=== PATIENT | male | born 1960 | race Caucasian/White ===

== ENCOUNTER 2018-10-25 00:04 | Emergency (ER) | payer BC ==
--- OUTSIDE RECORDS SUMMARY | 2018-10-25 00:30 | XMS REPORT | Continuity of Care Document ---
:1960 External Reference #:[id number] Author Name John Polo M.D. Address [address] [place] [address], [address] [place] [address] Care Team Providers Name Role Phone John Polo M.D. Care Team Information [employer] Professor Unavailable Payers Date Identification Numbers Payment Provider Subscriber Policy Number: [id number] [employer] Mathieu Ojeda PayID: [id number] [address] [place] [address] Policy Number: [id number] [facility] Mathieu Ojeda Group Number: [id number] [address] [address] PayID: [id number] [address] Advance Directives Description No Information Available Problems Date Description Provider Status Onset: 08/17/2012 Benign essential hypertension Kenyon Varela M.D. Active Onset: 06/11/2013 Allergic rhinitis Rodney Menendez M.D. Onset: 06/11/2013 Tobacco user Rodney Menendez M.D. Onset: 06/11/2013 Acute bronchitis Rodney Menendez M.D. Onset: 06/11/2013 Leukocytosis Rodney Menendez M.D. Onset: 06/24/2013 Umbilical hernia Rodney Menendez M.D. Onset: 08/22/2013 Pure hypercholesterolemia Rodney Menendez M.D. Onset: 03/31/2014 Peptic reflux disease Rodney Menendez M.D. Onset: 10/10/2014 Mixed hyperlipidemia Rodney Menendez M.D. Onset: 10/10/2014 Gastroesophageal reflux disease Rodney Menendez M.D. Onset: 10/10/2014 Increased frequency of urination Rodney Menendez M.D. Onset: 04/16/2015 Type 2 diabetes mellitus Rodney Menendez M.D. Onset: 08/19/2015 Essential hypertension Rodney Menendez M.D. Onset: 02/17/2016 Type II diabetes mellitus Rodney Menendez uncontrolled Ten Onset: 02/17/2016 Immunization Rodney Menendez M.D. Onset: 02/17/2016 Obesity Rodney Menendez M.D. Onset: 07/05/2018 Acute upper respiratory infection, TEREZA Rubio Active unspecified Family History Date Family Member(s) Observation Comments Father due to COPD () Father due to Heart Disease () Father 70 : (age 62 Years) Mother due to Heart Disease First Sister 52 Second Sister 50 Social History Type Date Description Comments Sex Unknown Hobbies ACTV8 Tobacco Use Start: Unknown current cigarette smoker ETOH Use consumes 4-5 beers per day Tobacco Use Start: Unknown End: Unknown Patient is a former smoker Smoking Status Reviewed: 09/03/18 Patient is a former smoker Allergies, Adverse Reactions, Alerts Date Description Reaction Status Severity Comments 09/04/2018 Amlodipine Besylate Active Increased urination 02/16/2012 NKDA Inactive Medications Medication Date Status Form Strength Qnty SIG Indications Ordering Provider Diltiazem HCL ER 09/13 Active Caps ER 240mg 90cap 1 by mouth John Coated 24HR s every day Austin Polo M.D. Metoprolol 09/04 Active Tablets ER 100mg 90tab 1 by mouth John Succinate ER 24HR s every day Austin Polo M.D. Shingrix 01/04 Active Suspension 50mcg qs one per Rec protocol Austin Polo M.D. Anoro Ellipta 11/23 Active Aerosol 62.5-25mc 3unit 1 puff once g/Inh s daily Austin Polo M.D. Metformin HCL 03/01 Active Tablets 1000mg 180ta take bs one/half Austin tablet dora Arias twice M.D. a day Benazepril HCL 11/08 Active Tablets 40mg 90tab 1 by mouth s every day Austin Polo M.D. Glimepiride 08/17 Active Tablets 4mg 90tab 2 by mouth s once a day Austin Polo M.D. Aspirin Active Tablets 81mg 1 po qd Xultophy Active Solution 100-3.6Un Pen-Inject it-mg/ML Omeprazole Active Capsules DR 20mg 90cap take 1 s capsule by JViry mouth once Childres, daily M.DViry Rosuvastatin Active Tablets 10mg 90tab 1 by mouth John Calcium s every day Austin Polo M.D. Diltiazem HCL ER 09/04 Hx Caps ER 120mg 90cap 1 by mouth John Coated Beads 24HR s every day Austin Polo, 09/13 M.D. Amoxicillin/Clav 07/05 Hx Tablets 875-125mg 20tab 1 tablet J06.9 Soila almonteanate s twice a day TEREZA Poole - for 10 days 09/04 for infection Metoprolol 05/29 Hx Tablets ER 200mg 90tab 1 by mouth John Succinate ER 24HR s every day Austin Polo, 09/04 M.D. Amoxicillin/Clav 11/21 Hx Tablets 875-125mg 20tab 1 by mouth J01.80 John anat s twice a day Austin Potassium - , 12/17 M.D. Prednisone 11/21 Hx Tablets 10mg qs 40mg by J01.80 mouth every J. - day x5 days , 12/17 M.D. Proair HFA 11/21 Hx Aerosol 108(90Bas 25.5g 2 puffs q4 J01.80 e) m hours as J. - mcg/Act needed sob Child, 07/05 or wheeze .D. Amlodipine 09/13 Hx Tablets 5mg 90tab 1 by mouth John Besylate s every day Austin Polo, 07/05 M.D. Metoprolol 09/04 Hx Tablets ER 100mg 240ta 1 and a John Succinate ER 24HR bs half by J. - mouth every , 05/29 day M.D. Venlafaxine HCL 08/31 Hx Caps ER 75mg 90cap 1 by mouth John ER 24HR s every day Austin Polo, 02/28 M.D. Amoxicillin/Clav 07/28 Hx Tablets 500-125mg 15tab 1 tab by Roro.90 Dayna arroyo s mouth three Castillo, Potassium - times a day M.D. 08/31 for 5 days /2017 Prednisone 07/28 Hx Tablets 10mg QS 4 by mouth . Dayna Zavala daily for 3 Castillo, - days, 3 by M.D. 08/31 mouth daily /2017 for 3 days, 2 by mouth daily for 3 days,1 by mouth daily for 3 days Ativan 07/17 Hx Tablets 1mg 2tabs take 1 tab 30 minutes JViry - prior to Tala, 07/28. December. repeat in 20 minutes if needed for anxiety Tresiba 03/01 Hx Solution 100Unit/M 15uni inject 36 John Albrighttouch Pen-Inject L ts units every J. - day Melani, 07/05.D. Metoprolol 03/01 Hx Tablets ER 100mg 90tab 1 by mouth John Succinate 24HR s every day Austin Polo, 09/04.D Lotrel 02/09 Hx Capsules 5-10mg 90cap 1 tab by s mouth daily Austin Polo, 03/01. Augmentin 11/24 Hx Tablets 875-125mg 20tab 1 by mouth Marina Boone s twice a day [place] - , ORDER CLERK 03/01 Metoprolol 11/08 Hx Tablets ER 50mg 90tab 1 by mouth John Succinate 24HR s every day Austin Polo, 03/01. Metformin HCL 08/26 Hx Tablets 500mg 180ta 1 by mouth bs twice a day Austin Polo, 03/01. Lotrel 08/17 Hx Capsules 5-20mg 90cap 1 by mouth s every day Austin Polo, 11/08.. Azithromycin 11/10 Hx Tablets 250mg 6tabs take two tablets by J. - mouth at [facility], 02/15 once on the . first day then take one daily thereafter Hydromet 11/03 Hx Syrup 5-1.5mg/5 120ml 1 teaspoon J06.9 ML by mouth Ash, - every 6 R.N., 02/15 hours as A.N.P. needed cough Hydromet 07/15 Hx Syrup 5-1.5mg/5 473ml 1 teaspoon J18.8 ML by mouth J. - every 4 Childres, 08/19 hours as M.D. needed cough Levaquin 07/15 Hx Tablets 750mg 5tabs 1 by mouth J18.8 every day x J. - 5 days Childres, 08/19 M.D. Lotrel 06/22 Hx Capsules 5-10mg 90cap 1 tab by s mouth daily J. - Childres, 08/17.D. Amoxicillin/Clav 10/22 Hx Tablets 875-125mg 20tab 1 by mouth 466.0 s twice a day Varghese Aleman - R.N., 11/01 A.N.P. Prednisone 10/22 Hx Tablets 10mg 11tab 3 tabs po 466.0 s qd x 1d, 2 Ash, - tabs po qd R.N., 10/29 x 2d, 1 tab A.N.P. /2014 po qd x4d Metformin HCL 10/10 Hx Tablets 500mg 180ta take one bs tablet by J. - mouth 2 Childres, 10/22 times a day .D. Amoxicillin/Clav 07/04 Hx Tablets 875-125mg 20tab 1 by mouth 466.0 s twice a day J. Potassium - Childres, 10/10 M.D. Prednisone 07/04 Hx Tablets 10mg qs 40mg by 466.0 mouth every J. - day x3days Childres, 10/10 then 20mg M.D. by mouth every day x3days then 10mg by mouth every day x3days then d/c Guaifenesin ac 07/04 Hx Syrup 100-10mg/ 473ml 10cc every 466.0 5ML four hours J. - as needed Childres, 10/10 for cough . Wellbutrin SR 07/04 Hx Tablets ER 150mg 180ta 150mg daily 305.1 12HR bs for 3 days Austin Polo, 10/10 increase to 150mg by mouth twice a day Avelox 08/22 Hx Tablets 400mg 10tab 1 po qd 477.9 s Austin Polo, 07/04 Loratadine 06/24 Hx Tablets 10mg 90tab 1 tab po 477.9 s qday Austin Polo, 10/10 Azelastine HCL 06/11 Hx Solution 137mcg/Sp 1unit 2 sprays 477.9 ray s each Austin - nostril bid Melani, 10/10 Levofloxacin 06/11 Hx Tablets 750mg 7tabs 1 by mouth 466.0 every day Austin Polo, 06/24 Azithromycin 11/13 Hx Tablets 250mg 6tabs 2 po today, 466.0 then 1 po Ash, - qd R.N.,A.N. 11/18 P. Hydromet 11/13 Hx Syrup 5-1.5mg/5 60ml 1 tsp by 466.0 ML mouth every Ash, - night as R.N.,A.N. 02/13 needed P. cough, mr x 1 in 4h prn Prednisone 11/13 Hx Tablets 10mg 11tab 3 tabs po 466.0 s qd x 1d, 2 [place], - tabs po qd R.N.,A.N. 11/20 x 2d, 1 tab P. /2012 po qd x4d Cefuroxime 08/17 Hx Tablets 250mg 20tab 1 po bid 288.60 Kenyon Axetil regina Franz M.D. 11/13 Cyclobenzaprine 05/01 Hx Tablets 10mg 20tab 1 po hs prn 723.1 Kenyon HCL regina Franz M.D. 10/10 Naproxen 05/01 Hx Tablets 500mg 60tab 1 po bid 723.1 Chris s prn Maria M Aleman R.N.,A.NViry 08/19. Lotrel Hx Capsules 2.5-10mg 30cap 1 po qd Unknown /0000 s - 06/22 Centrum Silver Hx Tablets 1 po qod Unknown /0000 - 03/01 Glimepiride Hx Tablets 2mg 1 by mouth Unknown /0000 every day - 08/17 Crestor 00 Hx Tablets 10mg 90tab 1 by mouth Marina S. /0000 s every day Alex - ORDER CLERK 03/01 Medications Administered in Office Medication Date Status Form Strength Qnty SIG Indications Ordering Provider Admin Of Administered Injection Injection/B Vaccine,One 018 P Schedule Vaccine Admin Of Administered Injection Injection/B Vaccine,One 017 P Schedule Vaccine Admin Of Administered Injection Injection/B Vaccine,One 016 P Schedule Vaccine PPD Tuberculin Administered Injection Injection/B 5mL, [facility] 016 P Schedule 31104-587-62 Admin Of Administered Injection John J. Vaccine,One 015 Childres, Vaccine M.D. Admin Of Administered Injection John J. Vaccine,One 015 Childres, Vaccine M.D. Admin Of Administered Injection John J. Vaccine,One 013 Childres, Vaccine M.D. Immunizations CPT Code Status Date Vaccine Lot # 54554 Given 08/31/2017 Flucelvax Quad, 0.5mL, [facility] [address]-43 [id number] Given 03/01/2017 Pneumococcal Vaccine, [facility] 6409-9423-21, 0.5 ML [id number] Given 03/01/2017 Tdap, adacel vaccine [facility] 67911-683-32 .50ML [id number] Q2037 Given 08/17/2016 Fluvirin 0.5 ML,[facility] 94096-101-99 [id number] Q2037 Given 08/19/2015 Fluvirin 0.5 ML,[facility] 09661-262-91 [id number] Q2037 Given 10/10/2014 Fluvirin 0.5 ML,[facility] 63415-511-75 [id number] Q2037 Given 10/10/2014 Fluvirin 0.5 ML,[facility] 36007-680-80 Q2037 Given 06/11/2013 Fluvirin 0.5 ML,[facility] 47331-195-93 Vital Signs Date Vital Result Comment 09/04/2018 8:28am Weight 253.00 lb Height 68.5 inches 5'8.50" BP Systolic 136 mmHg BP Diastolic 80 mmHg Heart Rate 80 /min Respiratory Rate 18 /min BMI (Body Mass Index) 37.9 kg/m2 07/05/2018 3:21pm Weight 243.00 lb Height 68.5 inches 5'8.50" BP Systolic 140 mmHg BP Diastolic 90 mmHg Body Temperature 99.0 F Heart Rate 100 /min Respiratory Rate 20 /min BMI (Body Mass Index) 36.4 kg/m2 02/28/2018 9:32am Weight 249.00 lb Height 68.5 inches 5'8.50" BP Systolic 122 mmHg BP Diastolic 76 mmHg Heart Rate 78 /min Respiratory Rate 18 /min BMI (Body Mass Index) 37.3 kg/m2 01/04/2018 9:35am Weight 247.00 lb Height 68.5 inches 5'8.50" BP Systolic 140 mmHg BP Diastolic 80 mmHg Heart Rate 80 /min Respiratory Rate 18 /min BMI (Body Mass Index) 37.0 kg/m2 12/18/2017 2:16pm Weight 248.00 lb Height 68.5 inches 5'8.50" BP Systolic 140 mmHg BP Diastolic 80 mmHg Body Temperature 97.9 F Heart Rate 78 /min Respiratory Rate 18 /min BMI (Body Mass Index) 37.2 kg/m2 11/21/2017 12:46pm Weight 248.00 lb Height 68.5 inches 5'8.50" BP Systolic 130 mmHg BP Diastolic 80 mmHg Body Temperature 98.6 F Heart Rate 84 /min BMI (Body Mass Index) 37.2 kg/m2 08/31/2017 8:49am Weight 254.00 lb Height 68.5 inches 5'8.50" BP Systolic 160 mmHg BP Diastolic 90 mmHg Heart Rate 80 /min BMI (Body Mass Index) 38.1 kg/m2 07/28/2017 1:13pm Weight 250.56 lb Height 70 inches 5'10" BP Systolic 138 mmHg BP Diastolic 72 mmHg Body Temperature 98.3 F Heart Rate 76 /min O2 % BldC Oximetry 97 % BMI (Body Mass Index) 35.9 kg/m2 03/01/2017 8:31am Weight 240.00 lb Height 70 inches 5'10" BP Systolic 148 mmHg BP Diastolic 90 mmHg Heart Rate 64 /min BMI (Body Mass Index) 34.4 kg/m2 11/24/2016 1:52pm Weight 241.00 lb Height 70 inches 5'10" BP Systolic 140 mmHg BP Diastolic 76 mmHg Body Temperature 97.9 F Heart Rate 78 /min Respiratory Rate 18 /min BMI (Body Mass Index) 34.6 kg/m2 08/17/2016 8:41am Weight 237.00 lb Height 70 inches 5'10" BP Systolic 150 mmHg BP Diastolic 94 mmHg Heart Rate 78 /min BMI (Body Mass Index) 34.0 kg/m2 02/17/2016 9:09am Weight 229.00 lb Height 67.5 inches 5'7.50" BP Systolic 130 mmHg BP Diastolic 76 mmHg Heart Rate 76 /min Respiratory Rate 18 /min BMI (Body Mass Index) 35.3 kg/m2 11/04/2015 3:02pm Weight 224.00 lb Height 67.5 inches 5'7.50" BP Systolic 130 mmHg BP Diastolic 100 mmHg BP Systolic Recheck 126 mmHg BP Diastolic Recheck 88 mmHg Body Temperature 99.0 F Heart Rate 78 /min Respiratory Rate 16 /min BMI (Body Mass Index) 34.6 kg/m2 08/19/2015 9:19am Weight 224.00 lb Height 67.5 inches 5'7.50" BP Systolic 158 mmHg BP Diastolic 94 mmHg Heart Rate 80 /min BMI (Body Mass Index) 34.6 kg/m2 07/15/2015 10:40am Weight 210.00 lb Height 67.5 inches 5'7.50" BP Systolic 138 mmHg BP Diastolic 90 mmHg Body Temperature 98.5 F Heart Rate 90 /min O2 % BldC Oximetry 97 % Respiratory Rate 20 /min BMI (Body Mass Index) 32.4 kg/m2 04/16/2015 1:40pm Weight 200.00 lb Height 67.5 inches 5'7.50" BP Systolic 130 mmHg BP Diastolic 78 mmHg Heart Rate 80 /min O2 % BldC Oximetry 97 % Respiratory Rate 16 /min BMI (Body Mass Index) 30.9 kg/m2 10/22/2014 12:57pm Weight 220.00 lb Height 67.5 inches 5'7.50" BP Systolic 130 mmHg BP Diastolic 84 mmHg Body Temperature 99.0 F right ear Heart Rate 110 /min O2 % BldC Oximetry 91 % BMI (Body Mass Index) 33.9 kg/m2 10/10/2014 8:35am Weight 220.00 lb Height 67.5 inches 5'7.50" BP Systolic 140 mmHg BP Diastolic 84 mmHg Heart Rate 80 /min BMI (Body Mass Index) 33.9 kg/m2 07/04/2014 10:30am Weight 221.00 lb Height 67.5 inches 5'7.50" BP Systolic 142 mmHg BP Diastolic 80 mmHg Body Temperature 98.4 F Heart Rate 66 /min BMI (Body Mass Index) 34.1 kg/m2 03/31/2014 8:35am Weight 215.00 lb BP Systolic 140 mmHg BP Diastolic 94 mmHg Body Temperature 98.5 F Heart Rate 60 /min 08/22/2013 3:09pm Weight 230.00 lb Height 67.5 inches 5'7.50" BP Systolic 140 mmHg BP Diastolic 92 mmHg Heart Rate 104 /min BMI (Body Mass Index) 35.5 kg/m2 06/24/2013 3:47pm BP Systolic 148 mmHg BP Diastolic 80 mmHg Body Temperature 98.4 F Heart Rate 88 /min 06/11/2013 9:16am Weight 226.00 lb Height 67.6 inches 5'7.60" BP Systolic 138 mmHg BP Diastolic 88 mmHg Body Temperature 98.5 F Heart Rate 84 /min O2 % BldC Oximetry 96 % BMI (Body Mass Index) 34.8 kg/m2 02/13/2013 10:24am Weight 228.00 lb Height 67.6 inches 5'7.60" BP Systolic 132 mmHg BP Diastolic 80 mmHg Heart Rate 82 /min BMI (Body Mass Index) 35.1 kg/m2 11/13/2012 3:40pm Weight 227.00 lb Height 67.6 inches 5'7.60" BP Systolic 132 mmHg BP Diastolic 92 mmHg Body Temperature 97.6 F Heart Rate 84 /min O2 % BldC Oximetry 94 % BMI (Body Mass Index) 34.9 kg/m2 08/17/2012 3:37pm Weight 235.00 lb BP Systolic 144 mmHg BP Diastolic 90 mmHg Body Temperature 97.8 F Heart Rate 80 /min 05/01/2012 3:13pm Weight 228.00 lb Height 67.6 inches 5'7.60" BP Systolic 130 mmHg BP Diastolic 80 mmHg Body Temperature 98.7 F Heart Rate 100 /min BMI (Body Mass Index) 35.1 kg/m2 02/16/2012 3:19pm Weight 236.00 lb Height 67.6 inches 5'7.60" BP Systolic 170 mmHg BP Diastolic 100 mmHg Heart Rate 100 /min BMI (Body Mass Index) 36.3 kg/m2 Results Test Date Facility Test Result H/L Range Note CBC 09/04/2018 [facility] WBC 9.2 10^3/uL 4.8-10.[address] [place] [phone] RBC 5.17 10^6/uL 4.2-6.1 HGB 16.3 g/dL 12.0-18.0 HCT 50.8 % 37-52 MCV 98.2 fL 80.0-99.9 MCH 31.5 pg 26.0-32.0 MCHC 32.1 g/dL 31.0-36.0 RDW 12.50 % 11.0-15.0 MPV 9.5 fL 7.4-10.4 Platelets 211 10^3/uL 130-400 Auto Diff 09/04/2018 [facility] Lymphocytes % 35.30 % 20.5- 51.[address] [place] [phone] Monocytes % 10.00 % High 1.7-9.3 Granulocyte % 54.7 % 42.2-75.2 Lymphocytes # 3.2 10^3/uL 0.6-4.1 Monocytes # 0.9 10^3/uL 0.0-1.8 Granulocyte # 5.0 10^3/uL 2.0-7.8 Comp. Metabolic 09/04/2018 [facility] Glucose 134.7 mg/dL High 65-[address] [place] [address] [phone] BUN 11.5 mg/dL 7-21 Co2 23.5 mmol/L 22-30 Sodium 141 mmol/L 137-145 Potassium 4.7 mmol/L 3.6-5.2 Chloride 103 mmol/L 98-110 Calcium 9.8 mg/dL 9-10.8 Creatinine 0.92 mg/dL 0.52-1.25 eGFR (Male) >60 1 Total Protein 7.13 g/dL 6.3-8.2 Albumin 3.92 g/dL 3.3-4.50 Sgot (Ast) 32.0 U/L 5-40 Alk Phosphatase 21.0 U/L Low 38-126 Total Bilirubin 0.51 mg/dL 0.2-1.3 SGPT (Alt) 50.0 U/L 7-56 Anion Gap (Calc) 14.5 7-16 BUN/Crea Ratio 12.5 Ratio 7-25 Globulin (Calc) 3.21 g/dL 2.3-3.5 A/G Ratio (Calc) 1.2 Ratio 1.1-2.2 Lipid Studies 09/04/2018 [facility] Triglycerides 169 mg/dL High 0-[address] [phone] Cholesterol 136 mg/dL 120-200 HDL Cholesterol 59.0 mg/dL 40-60 VLDL (Calc.) 34 mg/dL High <31 Cholesterol/HDL 2.31 Ratio <5.00 LDL (Calc.) 43 mg/dL 0-99 2 Laboratory test 09/04/2018 [facility] %A1c 7.2 % High 4.8- 6.0 finding [address] [phone] Laboratory test 02/28/2018 [facility] %A1c 7.7 % High 4.8- 6.0 3 finding [address] [phone] [phone] CBC 02/28/2018 [facility] WBC 8.9 10^3/uL 4.8-10.[address] [place] [phone] RBC 4.89 10^6/uL 4.2-6.1 HGB 15.8 g/dL 12.0-18.0 HCT 48.1 % 37-52 MCV 98.3 fL 80.0-99.9 MCH 32.3 pg High 26.0-32.0 MCHC 32.8 g/dL 31.0-36.0 RDW 11.50 % 11.0-15.0 MPV 9.1 fL 7.4-10.4 Platelets 200 10^3/uL 130-400 Auto Diff 02/28/2018 [facility] Lymphocytes % 30.90 % 20.5- 51.[address] [phone] Monocytes % 9.90 % High 1.7-9.3 Granulocyte % 59.2 % 42.2-75.2 Lymphocytes # 2.8 10^3/uL 0.6-4.1 Monocytes # 0.9 10^3/uL 0.0-1.8 Granulocyte # 5.3 10^3/uL 2.0-7.8 Lipid Studies 02/28/2018 [facility] Triglycerides 343 mg/dL High 0-[address] [address] [phone] Cholesterol 179 mg/dL 120-200 HDL Cholesterol 68.0 mg/dL High 40-60 VLDL (Calc.) 69 mg/dL High <31 Cholesterol/HDL 2.63 Ratio <5.00 LDL (Calc.) 42 mg/dL 0-99 4 Comp. Metabolic 02/28/2018 [facility] Glucose 185.8 mg/dL High 65-[address] [address] [phone] BUN 14.1 mg/dL 7-21 Co2 23.3 mmol/L 22-30 Sodium 139 mmol/L 137-145 Potassium 4.4 mmol/L 3.6-5.2 Chloride 104 mmol/L 98-110 Calcium 10.0 mg/dL 9-10.5 Creatinine 0.86 mg/dL 0.52-1.25 eGFR (Male) >60 5 Total Protein 7.72 g/dL 6.3-8.2 Albumin 4.28 g/dL 3.3-4.50 Sgot (Ast) 91.0 U/L High 5-40 Alk Phosphatase 33.0 U/L Low 38-126 Total Bilirubin 0.53 mg/dL 0.2-1.3 SGPT (Alt) 125.0 U/L High 7-56 Anion Gap (Calc) 11.7 7-16 BUN/Crea Ratio 16.4 Ratio 7-25 Globulin (Calc) 3.44 g/dL 2.3-3.5 A/G Ratio (Calc) 1.2 Ratio 1.1-2.2 Laboratory test 11/21/2017 [facility] B-Type 11 pg/mL 0- 100 finding 17 [place] [address] Peptid [phone] Comp. Metabolic 08/31/2017 [facility] Glucose 188.9 High 65- [address] [place] [address] 310 mg/[place] [address] [phone] BUN 11.5 mg/dL 7-21 Co2 24.4 mmol/L 22-30 Sodium 141 mmol/L 137-145 Potassium 4.5 mmol/L 3.6-5.2 Chloride 102 mmol/L 98-110 Calcium 10.0 mg/dL 9-10.5 Creatinine 0.83 mg/dL 0.52-1.25 eGFR (Male) >60 6 Total Protein 7.22 g/dL 6.3-8.2 Albumin 3.78 g/dL 3.3-4.50 Sgot (Ast) 53.0 U/L High 5-40 Alk Phosphatase 26.0 U/L Low 38-126 Total Bilirubin 0.60 mg/dL 0.2-1.3 SGPT (Alt) 71.0 U/L High 7-56 Anion Gap (Calc) 14.6 7-16 BUN/Crea Ratio 13.9 Ratio 7-25 Globulin (Calc) 3.44 g/dL 2.3-3.5 A/G Ratio (Calc) 1.1 Ratio 1.1-2.2 Lipid Studies 08/31/2017 [facility] Triglycerides 205 mg/dL High 0-[address] [place] [address] [phone] Cholesterol 164 mg/dL 120-200 HDL Cholesterol 72.0 mg/dL High 40-60 VLDL (Calc.) 41 mg/dL High <31 Cholesterol/HDL 2.28 Ratio <5.00 LDL (Calc.) 51 mg/dL 0-99 7 CBC 08/31/2017 [facility] WBC 9.0 10^3/uL 4.8-10.[address] [place] [address] [phone] RBC 4.91 10^6/uL 4.2-6.1 HGB 15.3 g/dL 12.0-18.0 HCT 48.3 % 37-52 MCV 98.3 fL 80.0-99.9 MCH 31.2 pg 26.0-32.0 MCHC 31.7 g/dL 31.0-36.0 RDW 11.70 % 11.0-15.0 MPV 9.5 fL 7.4-10.4 Platelets 233 10^3/uL 130-400 Auto Diff 08/31/2017 [facility] Lymphocytes % 35.30 % 20.5- 51.[address] [phone] Monocytes % 7.50 % 1.7-9.3 Granulocyte % 57.2 % 42.2-75.2 Lymphocytes # 3.2 10^3/uL 0.6-4.1 Monocytes # 0.7 10^3/uL 0.0-1.8 Granulocyte # 5.1 10^3/uL 2.0-7.8 Lipid Studies 03/01/2017 [facility] Triglycerides 236 mg/dL High 0-[address] [address] [phone] Cholesterol 189 mg/dL 120-200 HDL Cholesterol 77.0 mg/dL High 40-60 VLDL (Calc.) 47 mg/dL High <31 Cholesterol/HDL 2.45 Ratio <5.00 LDL (Calc.) 65 mg/dL 0-99 8 Comp. Metabolic 03/01/2017 [facility] Glucose 141.8 mg/dL High 65-[address] [address] [phone] BUN 15.0 mg/dL 7-21 Co2 25.7 mmol/L 22-30 Sodium 140 mmol/L 137-145 Potassium 4.2 mmol/L 3.6-5.2 Chloride 99 mmol/L 98-110 Calcium 9.1 mg/dL 9-10.5 Creatinine 0.91 mg/dL 0.52-1.25 eGFR (Male) >60 9 Total Protein 7.81 g/dL 6.3-8.2 Albumin 4.23 g/dL 3.3-4.50 Sgot (Ast) 66.0 U/L High 5-40 Alk Phosphatase 22.0 U/L Low 38-126 Total Bilirubin 0.89 mg/dL 0.2-1.3 SGPT (Alt) 91.0 U/L High 7-56 Anion Gap (Calc) 15.3 7-16 BUN/Crea Ratio 16.5 Ratio 7-25 Globulin (Calc) 3.58 g/dL High 2.3-3.5 A/G Ratio (Calc) 1.2 Ratio 1.1-2.2 Laboratory test 03/01/2017 [facility] %A1c 7.2 % High 4.8- 6.0 finding [address] [phone] CBC 03/01/2017 [facility] WBC 9.5 10^3/uL 4.8-10.[address] [phone] RBC 4.91 10^6/uL 4.2-6.1 HGB 15.8 g/dL 12.0-18.0 HCT 48.3 % 37-52 MCV 98.3 fL 80.0-99.9 MCH 32.2 pg High 26.0-32.0 MCHC 32.7 g/dL 31.0-36.0 RDW 12.20 % 11.0-15.0 MPV 9.6 fL 7.4-10.4 Platelets 237 10^3/uL 130-400 Auto Diff 03/01/2017 [facility] Lymphocytes % 38.50 % 20.5- 51.[address] [phone] Monocytes % 9.10 % 1.7-9.3 Granulocyte % 52.4 % 42.2-75.2 Lymphocytes # 3.7 10^3/uL 0.6-4.1 Monocytes # 0.9 10^3/uL 0.0-1.8 Granulocyte # 5.0 10^3/uL 2.0-7.8 Lipid Studies 08/26/2016 [facility] Triglycerides 239 mg/dL High 0-[address] [id number] [phone] Cholesterol 153 mg/dL 120-200 HDL Cholesterol 59.0 mg/dL 40-60 VLDL (Calc.) 48 mg/dL High <31 Cholesterol/HDL 2.59 Ratio <5.00 LDL (Calc.) 46 mg/dL 0-99 10 Comp. Metabolic 08/26/2016 [facility] Glucose 192.1 mg/dL High 65-[address] [id number] [phone] BUN 11.5 mg/dL 7-21 Co2 27.0 mmol/L 22-30 Sodium 146 mmol/L High 137-145 Potassium 4.7 mmol/L 3.6-5.2 Chloride 107 mmol/L 98-110 Calcium 9.4 mg/dL 9-10.5 Creatinine 1.05 mg/dL 0.52-1.25 Total Protein 6.75 g/dL 6.3-8.2 Albumin 3.93 g/dL 3.3-4.50 Sgot (Ast) 50.0 U/L High 5-40 Alk Phosphatase 28.0 U/L Low 38-126 Total Bilirubin 0.69 mg/dL 0.2-1.3 SGPT (Alt) 78.0 U/L High 7-56 Anion Gap (Calc) 12.0 7-16 BUN/Crea Ratio 11.0 Ratio 7-25 Globulin (Calc) 2.82 g/dL 2.3-3.5 A/G Ratio (Calc) 1.4 Ratio 1.1-2.2 Laboratory test finding 08/26/2016 [facility] %A1c 7.8 % High 4.8-6.[address] [phone] eGFR (Male) >60 11 Comp. Metabolic 08/19/2015 [facility] Glucose 145.7 mg/dL High 65-[address] [phone] BUN 11.7 mg/dL 7-21 Co2 25.5 mmol/L 22-30 Sodium 139 mmol/L 137-145 Potassium 4.1 mmol/L 3.6-5.2 Chloride 103 mmol/L 98-110 Calcium 9.5 mg/dL 9-10.5 Creatinine 0.83 mg/dL 0.52-1.25 Total Protein 7.35 g/dL 6.3-8.2 Albumin 4.08 g/dL 3.3-4.50 Sgot (Ast) 45.0 U/L High 5-40 Alk Phosphatase 29.0 U/L Low 38-126 Total Bilirubin 0.87 mg/dL 0.2-1.3 SGPT (Alt) 66.0 U/L High 7-56 Anion Gap (Calc) 10.5 7-16 BUN/Crea Ratio 14.1 Ratio 7-25 Globulin (Calc) 3.27 g/dL 2.3-3.5 A/G Ratio (Calc) 1.2 Ratio 1.1-2.2 Lipid Studies 08/19/2015 [facility] Triglycerides 217 mg/dL High 0-[address] [phone] Cholesterol 189 mg/dL 120-200 HDL Cholesterol 77.0 mg/dL High 40-60 VLDL (Calc.) 43 mg/dL High <31 Cholesterol/HDL 2.45 Ratio <5.00 LDL (Calc.) 69 mg/dL 0-99 12 Laboratory test 08/19/2015 [facility] eGFR (Male) 101 >59 13 finding [address] [address] [phone] Comp. Metabolic 10/10/2014 [facility] Glucose 122.6 High 65- 110 77 [facility] 310 mg/[place] [address] [phone] BUN 12.5 mg/dL 7-21 Co2 25.0 mmol/L 22-30 Sodium 141 mmol/L 137-145 Potassium 4.4 mmol/L 3.6-5.2 Chloride 103 mmol/L 98-110 Calcium 10.4 mg/dL 9-10.5 Creatinine 0.82 mg/dL 0.52-1.25 Total Protein 7.33 g/dL 6.3-8.2 Albumin 4.20 g/dL 3.3-4.50 Sgot (Ast) 41.0 U/L High 5-40 Alk Phosphatase 30.0 U/L Low 38-126 Total Bilirubin 0.59 mg/dL 0.2-1.3 SGPT (Alt) 47.0 U/L 7-56 Anion Gap (Calc) 13.0 7-16 BUN/Crea Ratio 15.2 Ratio 7-25 Globulin (Calc) 3.13 g/dL 2.3-3.5 A/G Ratio (Calc) 1.3 Ratio 1.1-2.2 Lipid Studies 10/10/2014 [facility] Triglycerides 269 mg/dL High 0-[address] [address] [phone] Cholesterol 189 mg/dL 120-200 HDL Cholesterol 66.0 mg/dL High 40-60 VLDL (Calc.) 54 mg/dL High <31 Cholesterol/HDL 2.86 Ratio <5.00 LDL (Calc.) 69 mg/dL 0-99 14 CBC 10/10/2014 [facility] WBC 10.1 10^3/uL 4.8-10.[address] [address] [phone] RBC 5.23 10^6/uL 4.2-6.1 HGB 17.2 g/dL 12.0-18.0 HCT 51.7 % 37-52 MCV 98.9 fL 80.0-99.9 MCH 32.9 pg High 26.0-32.0 MCHC 33.3 g/dL 31.0-36.0 RDW 12.80 % 11.0-15.0 MPV 10.0 fL 7.4-10.4 Platelets 183 10^3/uL 130-400 Auto Diff 10/10/2014 [facility] Lymphocytes % 33.70 % 20.5- 51.[address] [address] [phone] Monocytes % 8.70 % 1.7-9.3 Granulocyte % 57.6 % 42.2-75.2 Lymphocytes # 3.4 10^3/uL 0.6-4.1 Monocytes # 0.9 10^3/uL 0.0-1.8 Granulocyte # 5.8 10^3/uL 2.0-7.8 Laboratory test finding 10/10/2014 [facility] %A1c 7.5 % High 4.2-5.[address] [address] [phone] PSA 5.29 ng/mL High 0-4.0 eGFR (Male) 103 >59 15 CBC W/Auto 06/21/2013 [facility] WBC # Bld 13.5 K/uL High 4.8-10.8 Differential 17 [facility] [place] [address] [phone] RBC # Bld 4.94 M/uL 4.60-6.20 Hgb Bld-mCnc 16.8 gm/dL 13.5-18.0 Hct VFr Bld Auto 48.4 % 41.0-53.0 MCV RBC Auto 97.8 fL 80.0-100.0 MCHC RBC-mCnc 34.7 % 30.0-36.5 MCH RBC Qn 33.9 pg 27.0-34.0 RDW RBC 11.9 % 11.0-15.0 Platelet 172 K/uL 130-450 PMV Bld Auto 11.4 fL 6.0-12.0 Neutrophils # Bld Auto 54 % 37-80 Lymphocytes NFr Bld 35 % 10-50 Monocytes NFr Bld Auto 8 % 0-12 Eosinophil # Bld 0.4 K/uL 0.0-0.9 Basophils # Bld Auto 0 % <=3 Neutrophils # Bld 7.2 K/uL 1.8-8.6 Lymphocytes # Bld Auto 4.7 K/uL 0.5-5.0 Monocytes # Bld Auto 1.1 K/uL 0.0-1.3 Baso# 0.1 K/ul 0.0-0.3 CBC W/Auto 09/18/2012 [facility] WBC 12.6 K/uL High 4.8- 10.8 Differential 17 [place] [address] [phone] Red Blood Cell 4.64 M/uL 4.60-6.20 Hemoglobin 16.5 gm/dL 13.5-18.0 Hematocrit 44.7 % 41.0-53.0 MCV 96.2 fL 80.0-100.0 MCHC 36.9 % High 30.0-36.5 MCH 35.5 pg High 27.0-34.0 RDW 11.7 % 11.0-15.0 Platlet Count 170 K/uL 130-450 MPV 11.2 fL 6.0-12.0 Neutrophil 54 % 37-80 Lymphocyte 36 % 10-50 Monocyte 7 % 0-12 Eosinophil 3 % <=8 Basophil 1 % <=3 [place]ola# 6.8 K/uL 1.8-8.6 Lymphocyte # 4.5 K/uL 0.5-5.0 Monocyte # 0.9 K/uL 0.0-1.3 Eosinophil # 0.3 K/uL 0.0-0.9 Basophil # 0.1 K.uL 0.0-0.3 CBC 09/04/2012 [facility] WBC 13.5 10^3/uL High 4.8-10.8 77 [facility] [address] [place] [address] [phone] RBC 5.03 10^6/uL 4.2-6.1 HGB 16.1 g/dL 12.0-18.0 HCT 48.7 % 37-52 MCV 96.8 fL 80.0-99.0 MCH 32.0 pg High 27.0-31.0 MCHC 33.1 g/dL 33.0-37.0 RDW 13.10 % 11.0-15.0 MPV 11.5 fL High 7.4-10.4 Platelets 173 10^3/uL 130-400 Laboratory test 08/15/2012 [facility] Lymphocytes % 32.90 % 20.5-51.1 finding [address] [address] [phone] Monocytes % 3.10 % 1.7-9.3 Granulocyte % 64.0 % 42.2-75.2 Lymphocytes # 4.3 10^9/L High 1.2-3.4 Monocytes # 0.4 10^9/L 0.1-0.5 Granulocyte # 8.4 /mm^3 High 1.4-5.5 CBC 08/15/2012 [facility] WBC 13.1 10^3/uL High 4.8-10.[address] [place] [address] [phone] RBC 4.69 10^6/uL 4.2-6.1 HGB 15.6 g/dL 12.0-18.0 HCT 45.5 % 37-52 MCV 96.9 fL 80.0-99.0 MCH 33.2 pg High 27.0-31.0 MCHC 34.2 g/dL 33.0-37.0 RDW 12.90 % 11.0-15.0 MPV 11.3 fL High 7.4-10.4 Platelets 175 10^3/uL 130-400 1 For Patients, multiply result by 1.159 Units expressed as mL/min/1.73m^2 Normal Range is > or=to 60. 2 LDL(Calc.) invalid if triglycerides >400. 3 FASTING 4 LDL(Calc.) invalid if triglycerides >400. 5 For Patients, multiply result by 1.159 Units expressed as mL/min/1.73m^2 Normal Range is > or=to 60. 6 For Patients, multiply result by 1.159 Units expressed as mL/min/1.73m^2 Normal Range is > or=to 60. 7 LDL(Calc.) invalid if triglycerides >400. 8 LDL(Calc.) invalid if triglycerides >400. 9 For Patients, multiply result by 1.159 Units expressed as mL/min/1.73m^2 Normal Range is > or=to 60. 10 LDL(Calc.) invalid if triglycerides >400. 11 Units expressed as mL/min/1.73m^2 Normal Range is > or=to 60. 12 LDL(Calc.) invalid if triglycerides >400. 13 Units expressed as mL/min/1.73m^2 14 LDL(Calc.) invalid if triglycerides >400. 15 Units expressed as mL/min/1.73m^2 Procedures Date Code Description Status 04/26/2017 [id number] Colonoscopy Completed 12/17/2012 [id number] Colonoscopy Completed Encounters Type Date Location Provider Dx Diagnosis Office Visit 09/04/2018 Main Office John Avila Z00.00 Encntr for general 8:30a [place] adult medical exam w/o abnormal findings E11.65 Type 2 diabetes mellitus with hyperglycemia F33.0 Major depressive disorder, recurrent, mild I10 Essential (primary) hypertension E78.2 Mixed hyperlipidemia K21.9 Gastro-esophageal reflux disease without esophagitis E66.01 Morbid (severe) obesity due to excess calories Z71.3 Dietary counseling and surveillance Office Visit 07/05/2018 3:20p Main Office TEREZA Rubio J06.9 Acute upper respiratory infection, unspecified Office Visit 02/28/2018 9:45a Main Office John Avila E11.65 Type 2 diabetes [place] mellitus with hyperglycemia I10 Essential (primary) hypertension E78.2 Mixed hyperlipidemia K21.9 Gastro-esophageal reflux disease without esophagitis E66.09 Other obesity due to excess calories C61 Malignant neoplasm of prostate F33.0 Major depressive disorder, recurrent, mild Z68.37 Body mass index (BMI) 37.0-37.9, adult Office Visit 01/04/2018 9:45a Main Office John Avila S41.131S Puncture wound [place] w/o foreign body of right upper arm, sequela W55.01xD Bitten by cat, subsequent encounter W55.01xS Bitten by cat, sequela Office Visit 12/18/2017 2:00p Main Office John Avila W55.01xD Bitten by Melani blancas M.D. subsequent encounter L03.113 Cellulitis of right upper limb Office Visit 11/21/2017 12:45p Main Office John Avila J01.80 Other acute [place] sinusitis R06.02 Shortness of breath I10 Essential (primary) hypertension Z68.38 Body mass index (BMI) 38.0-38.9, adult Office Visit 08/31/2017 8:45a Main Office John Avila Z00.00 Anton [facility] M.D. general adult medical exam w/o abnormal findings E11.65 Type 2 diabetes mellitus with hyperglycemia I10 Essential (primary) hypertension E78.2 Mixed hyperlipidemia K21.9 Gastro-esophageal reflux disease without esophagitis C61 Malignant neoplasm of prostate E66.09 Other obesity due to excess calories C64.9 Malignant neoplasm of unsp kidney, except renal pelvis Office Visit 07/28/2017 1:15p Main Office Dayna Castillo J01.90 Acute sinusitis, M.DViry unspecified L03.317 Cellulitis of buttock C61 Malignant neoplasm of prostate Office Visit 03/01/2017 8:30a Main Office John Avila E11.65 Type 2 diabetes [place] mellitus with hyperglycemia I10 Essential (primary) hypertension E78.2 Mixed hyperlipidemia K21.9 Gastro-esophageal reflux disease without esophagitis Office Visit 11/24/2016 2:00p Main Office Marina Boone J06.9 Acute upper Alex, ORDER CLERK respiratory infection, unspecified J20.9 Acute bronchitis, unspecified Office Visit 08/17/2016 9:00a Main Office John Avila Z00.00 Anton [facility] M.D. general adult medical exam w/o abnormal findings E11.65 Type 2 diabetes mellitus with hyperglycemia E78.2 Mixed hyperlipidemia I10 Essential (primary) hypertension K21.9 Gastro-esophageal reflux disease without esophagitis Office Visit 02/17/2016 9:15a Main Office John Avila E11.65 Type 2 diabetes [place] mellitus with hyperglycemia E78.2 Mixed hyperlipidemia I10 Essential (primary) hypertension Z23 Encounter for immunization E66.09 Other obesity due to excess calories Office Visit 11/04/2015 3:20p Main Office Chris Aleman J06.9 Acute upper R.N., A.N.P. respiratory infection, unspecified R35.0 Frequency of micturition Office Visit 08/19/2015 9:15a Main Office John Avila E11.9 Type 2 diabetes [place] mellitus without complications E78.2 Mixed hyperlipidemia I10 Essential (primary) hypertension K21.9 Gastro-esophageal reflux disease without esophagitis Z23 Encounter for immunization Office Visit 07/15/2015 10:45a Main Office John Avila J18.8 Other pneumoniaMelani M.D. unspecified organism Office Visit 04/16/2015 1:45p Main Office John Avila 577.0 Pancreatitis Acute [place] 401.1 Hypertension Benign 272.2 Hyperlipidemia Mixed 250.00 Diabetes Mellitus W/O Compl Type II Or Unspec Controlled Office Visit 10/22/2014 1:00p Main Office Chris Aleman R.N., 466.0 Bronchitis Acute A.N.P. 305.1 Tobacco Use Disorder Office Visit 10/10/2014 8:30a Main Office John Avila 401.1 Hypertension Marisa [facility] M.D. 272.2 Hyperlipidemia Mixed 305.1 Tobacco Use Disorder 530.81 Esophageal Reflux 788.41 Urinary Frequency V04.81 Need For Prophylactic Vaccination & Inoculation/Influenza Office Visit 07/04/2014 10:30a Main Office John Avila 466.0 Bronchitis Acute [place] 305.1 Tobacco Use Disorder Office Visit 03/31/2014 8:30a Main Office John Avila 401.1 Hypertension Marisa [facility] M.D. 272.0 Hypercholesterolemia Pure 305.1 Tobacco Use Disorder 530.11 Esophagitis Reflux Office Visit 08/22/2013 3:30p Main Office John Avila V70.0 Examination General [place] Medical Routine AT Health Care Facility 401.1 Hypertension Benign 305.1 Tobacco Use Disorder 477.9 Rhinitis Allergic Cause Unspec 288.60 Leukocytosis, Unspecified 272.0 Hypercholesterolemia Pure Office Visit 06/24/2013 3:45p Main Office John Avila 288.60 LeukocytosisMelani M.D. Unspecified 477.9 Rhinitis Allergic Cause Unspec 305.1 Tobacco Use Disorder 401.1 Hypertension Benign 553.1 Hernia Umbilical Office Visit 06/11/2013 9:15a Main Office John Avila 477.9 Rhinitis Allergic [place] Cause Unspec 305.1 Tobacco Use Disorder 466.0 Bronchitis Acute 288.60 Leukocytosis, Unspecified V04.81 Need For Prophylactic Vaccination & Inoculation/Influenza Office Visit 02/13/2013 Main Office Kenyon Varela M.D. 401.1 Hypertension 10:15a Benign 272.0 Hypercholesterolemia Pure 305.1 Tobacco Use Disorder 288.60 Leukocytosis, Unspecified 278.02 Overweight 530.11 Esophagitis Reflux Office Visit 11/13/2012 3:40p Main Office Chris Aleman, 466.0 Bronchitis Acute R.N.,A.N.P. 723.1 Cervicalgia Office Visit 08/17/2012 Main Office Kenyon Varela M.D. 288.60 Leukocytosis, 3:30p Unspecified Office Visit 05/01/2012 Main Office Chris Aleman, 723.1 Cervicalgia 3:20p R.N.,A.N.P. Office Visit 02/16/2012 Main Office Kenyon Varela M.D. 401.1 Hypertension 3:30p Benign 272.0 Hypercholesterolemia Pure 305.1 Tobacco Use Disorder 278.02 Overweight 530.11 Esophagitis Reflux V70.0 Examination General Medical Routine AT Health Care Facility Plan of Treatment Future Appointment(s):10/16/2018 2:15 pm - John Polo M.D. at Main Qscems7903/19/2019 8:30 am - John Polo M.D. at Main Vyxmxp5209/04/2018 - John Polo M.D.Z00.00 Encounter for general adult medical examination without abnoFollow up:6 frrxptA07.65 Type 2 diabetes mellitus with myegcqjazcqfhP67.0 Major depressive disorder, recurrent, mildI10 Essential ( primary) bwhhrusnsflnQ22.2 Mixed aifncyobskglauZ87.9 Gastro-esophageal reflux disease without oqcciwkszciZ50.01 Morbid (severe) obesity due to excess aqgfbatgU96.3 Dietary counseling and surveillanceAllNew Medication:Metoprolol Succinate ER 100 mg - 1 by mouth every dayDiltiazem HCL ER Coated Beads 120 mg - 1 by mouth every day
[2018-10-25] MEDS ORDERED: HYDROmorphone INJ1* 1 MG/ML SYRINGE IM ONE (01:10)
[2018-10-25] MEDS ORDERED: PROCHLORPERAZINE INJ 5 MG/ML 2 ML VIAL IM ONE (01:11)
--- NOTE | 2018-10-25 01:23 | ED ---
Upper Extremity Pain - HPI Summary HPI Summary: This patient is a 58 year old M presenting to [facility] accompanied by his with a chief complaint of right shoulder pain since 17:00. The patient s/p rotator cuff repair at [facility] at 08:00 and was discharged at 12:00. Patient has his right arm in a sling. Per patients , the patient was given a nerve block before he was discharged from [facility] but it didnt take. The patient rates the pain 10/10 in severity. Symptoms aggravated by movement. Symptoms alleviated by nothing. Patient has been taking ibuprofen (last at 22:10) and Percocet (last at 22:50) but notes it has not alleviated his pain. - History of Current Complaint Chief Complaint: Dandy Stated Complaint: "HAD SURGERY AND PAIN IS NOT GOING AWAY" PER PT Time Seen by Provider: 10/25/18 01:00 Hx Obtained From: Patient, Family/Magazine Editor - patient's Mechanism Of Injury: Other - surgical rotator cuff repair Onset/Duration: Started Hours Ago, Traumatic, Still Present Timing: Constant Severity Initially: Moderate Severity Currently: Moderate Pain Location: Shoulder - right shoulder Aggravating Factor(s): Movement Alleviating Factor(s): Nothing - Allergies/Home Medications Allergies/Adverse Reactions: Allergies Allergy/AdvReac Type Severity Reaction Status Date / Time No Known Allergies Allergy Verified 10/25/18 00:13 PMH/Surg Hx/FS Hx/Imm Hx Musculoskeletal History: Reports: Other Musculoskeletal History - Right rotator cuff injury Opthamlomology History: Denies: Hx Legally Blind EENT History: Denies: Hx Deafness - Surgical History Surgery Procedure, Year, and Place: Right rotator cuff repair 10/24/[address] [facility] Infectious Disease History: No Infectious Disease History: Denies: Traveled Outside the [place] in Last 30 Days - Family History Known Family History: Negative: Blood Disorder - Social History Lives: With Family Review of Systems Negative: Fever Negative: Epistaxis Negative: Cough Negative: Vomiting Positive: Arthralgia - right shoulder pain All Other Systems Reviewed And Are Negative: Yes Physical Exam - Summary Physical Exam Summary: VITAL SIGNS: Reviewed. GENERAL: Patient is a well-developed and nourished MALE who is lying comfortable in the stretcher. Patient is not in any acute respiratory distress. HEAD AND FACE: No signs of trauma. No ecchymosis, hematomas or skull depressions. No sinus tenderness. EYES: PERRLA, EOMI x 2, No injected conjunctiva, no nystagmus. EARS: Hearing grossly intact. Ear canals and tympanic membranes are within normal limits. MOUTH: Oropharynx within normal limits. NECK: Supple, trachea is midline, no adenopathy, no JVD, no carotid bruit, no c- spine tenderness, neck with full ROM. CHEST: Symmetric, no tenderness at palpation LUNGS: Clear to auscultation bilaterally. No wheezing or crackles. CVS: Regular rate and rhythm, S1 and S2 present, no murmurs or gallops appreciated. ABDOMEN: Soft, non-tender. No signs of distention. No rebound no guarding, and no masses palpated. Bowel sounds are normal. EXTREMITIES: no edema, no cyanosis or clubbing. Right forearm and upper arm are soft with no tenderness, good pulses, good sensation. The patient is able to move his fingers NEURO: Alert and oriented x 3. No acute neurological deficits. Speech is normal and follows commands. SKIN: Dry and warm Triage Information Reviewed: Yes Vital Signs On Initial Exam: Initial Vitals Temp Pulse Resp BP Pulse Ox 98.9 F 86 20 167/98 93 10/25/18 00:05 10/25/18 00:05 10/25/18 00:05 10/25/18 00:05 10/25/18 00:05 Vital Signs Reviewed: Yes Diagnostics - Vital Signs Vital Signs Temp Pulse Resp BP Pulse Ox 10/25/18 00:05 98.9 F 86 20 167/98 93 - Laboratory Lab Statement: Any lab studies that have been ordered have been reviewed, and results considered in the medical decision making process. Re-Evaluation - Re-Evaluation 1st re-eval Re-Evaluation Time: 02:10 Change: Improved Comment: The patient reports his pain has lessened after receiving medication Course/Dx - Course Course Of Treatment: This patient is a 58 year old M presenting to [facility] accompanied by his with a chief complaint of right shoulder pain since 17: 00. The patient s/p rotator cuff repair at [facility] at 08:00 and was discharged at 12:00. Patient has his right arm in a sling. Patient has been taking ibuprofen (last at 22:10) and Percocet (last at 22:50) but notes it has not alleviated his pain. Physical exam reveals right forearm and upper arm are soft with no tenderness, good pulses, good sensation, and he is able to move fingers. In the ED course the patient was given Dilaudid and Compazine. Upon re- evaluation the patient reports feeling better. Dx acute post-operative shoulder pain. Patient will be discharged home with follow up from PCP. The patient is agreeable with this plan. - Diagnoses Provider Diagnoses: Postoperative pain, acute, shoulder Discharge - Sign-Out/Discharge Documenting (check all that apply): Patient Departure - discharge home Patient Received Moderate/Deep Sedation with Procedure: No - Discharge Plan Condition: Stable Disposition: HOME Patient Education Materials: Shoulder Pain (ED) Referrals: John Polo MD [Primary Care Provider] - 1 Day Additional Instructions: Follow up with your primary care physician in 1-2 days. Return to the emergency department with any new or worsening symptoms. - Attestation Statements Document Initiated by Scribe: Yes Documenting Scribe: Katie Torres Provider For Whom Adelaidaibe is Documenting (Include Credential): Ben Waldron MD Scribe Attestation: Katie Salinas, scribed for Ben Waldron MD on 10/25/18 at 0221. Status of Scribe Document: Ready
[2018-10-25 02:26] VITALS: BP 153/79
== END 2018-10-25 02:25 | disposition home or self-care (01) ==
LOC: ED 00:04
DX: G89.18 Other acute postprocedural pain (principal); M25.511 Pain in right shoulder
CPT/HCPCS: 96372; 99282; J0780; J1170